=== PATIENT | female | born 1990 | race Caucasian/White ===

== ENCOUNTER 2020-11-05 17:24 | Emergency (ER) | payer OTHER ==
[~2020-11-05 17:24] MED LIST: MACROBID 100 M100 MG PO
== END 2020-11-05 19:07 | disposition left against medical advice (07) ==
LOC: ER1 17:24
DX: Z53.21 Procedure and treatment not carried out due to patient leaving prior to being seen by health care provider (principal)

== ENCOUNTER 2020-11-06 18:14 | Emergency (ER) | payer OTHER | END 2020-11-06 20:36 | disposition left against medical advice (07) | LOC: ER1 18:14 | DX: Z53.21 Procedure and treatment not carried out due to patient leaving prior to being seen by health care provider (principal) ==

== ENCOUNTER 2021-01-31 01:28 | Emergency (ER) | payer OTHER ==
[2021-01-31] MEDS ORDERED: OMNICEF 300 MG300 MG PO (03:36)
[2021-02-01 23:09] LABS: CHLAMYDIA TRACHOMATIS, NAA Negative (Negative); NEISSERIA GONORRHOEAE, NAA Negative (Negative)
== END 2021-01-31 04:00 | disposition home or self-care (01) ==
LOC: ER1 01:28
DX: N30.90 Cystitis, unspecified without hematuria (principal); Z86.19 Personal history of other infectious and parasitic diseases
CPT/HCPCS: 81001; 87077; 87086; 87186; 99283; J0696

== ENCOUNTER 2021-10-27 18:17 | Emergency (ER) | payer OTHER ==
[~2021-10-27 18:17] MED LIST changes: +OMNICEF 300 MG300 MG PO
[2021-10-27 19:17] LABS: HEMOGLOBIN 13.8 gm/dl (12.3-15.3); RED BLOOD COUNT 4.59 M/UL (4.00-5.10); WHITE BLOOD COUNT 5.6 K/UL (4.5-11.0)
[2021-10-27 19:36] LABS: BUN/CREATININE RATIO 10 (0-10)
== END 2021-10-28 02:10 | disposition short-term general hospital (02) ==
LOC: ER1 18:17
PROVIDERS: Physician Assistant Medical
DX: L03.213 Periorbital cellulitis (principal); Z20.822 Contact with and (suspected) exposure to COVID-19
CPT/HCPCS: 70487; 80053; 83605; 85025; 87040; 96365; 96366; 99284; J3370; Q9967; U0002